=== PATIENT | male | born 1985 | race Caucasian/White ===

== ENCOUNTER 2018-07-19 08:47 | Emergency (ER) | payer OTHER ==
[2018-07-19 09:17] VITALS: BP 113/77
--- NOTE | 2018-07-19 10:40 | UC ---
Abdominal Pain Male HPI - HPI Summary HPI Summary: 1 WEEK AGO PATIENT DEVELOPED NAUSEA/VOMITING AND LOW-GRADE FEVER. NO DIARRHEA. LASTED FOR 2-3 DAYS THEN RESOLVED. PATIENT HAS HAD PERSISTENT LINGERING SHARP EPIGASTRIC ABDOMINAL PAIN SINCE THEN. NO URINARY SYMPTOMS. NO ASSOCIATION WITH FOOD HOWEVER IT DOES GET WORSE WHEN HE LAYS DOWN. HE HAS HAD REFLUX ON OCCASION IN THE PAST WHICH USUALLY RESPONDS WELL TO TUMS. PATIENT STATES THIS FEELS A LITTLE WORSE AND HE DID NOT TRY TUMS. - History of Current Complaint Chief Complaint: UCGI Stated Complaint: NAUSEA/ABD PAIN Time Seen by Provider: 07/19/18 10:02 Hx Obtained From: Patient Onset/Duration: Gradual Onset, Lasting Days, Still Present Severity Initially: Moderate Severity Currently: Mild Pain Intensity: 5 Pain Scale Used: 0-10 Numeric Location: Epigastric Radiates: No Character: Sharp Aggravating Factor(s): Nothing Alleviating Factor(s): Nothing Associated Signs And Symptoms: Positive: Nausea, Vomiting. Negative: Fever, Chest Pain, Back Pain, Urinary Symptoms - Allergies/Home Medications Allergies/Adverse Reactions: Allergies Allergy/AdvReac Type Severity Reaction Status Date / Time No Known Allergies Allergy Verified 07/19/18 09:11 Home Medications: Home Medications Ibuprofen TAB* [Motrin TAB* 400 MG] 400 mg PO BID PRN 07/19/18 [History Confirmed 07/19/18] PMH/Surg Hx/FS Hx/Imm Hx Previously Healthy: Yes - Surgical History Surgical History: Yes Surgery Procedure, Year, and Place: vasectomy - Family History Known Family History: Positive: Non-Contributory - Social History Alcohol Use: Rare Substance Use Type: Excessive Caffeine Substance Use Comment - Amount & Last Used: 3 cups daily Smoking Status (MU): Never Smoked Tobacco Review of Systems All Other Systems Reviewed And Are Negative: Yes Constitutional: Positive: Negative Skin: Positive: Negative Respiratory: Positive: Negative Cardiovascular: Positive: Negative Gastrointestinal: Positive: Abdominal Pain, Vomiting, Nausea. Negative: Diarrhea Genitourinary: Positive: Negative Physical Exam Triage Information Reviewed: Yes Appearance: Well-Appearing, No Pain Distress, Well-Nourished Vital Signs: Initial Vital Signs Temp 99.1 F 07/19/18 09:11 Pulse 73 07/19/18 09:11 Resp 18 07/19/18 09:11 BP 113/77 07/19/18 09:11 Pulse Ox 100 07/19/18 09:11 Vital Signs Reviewed: Yes Eyes: Positive: Conjunctiva Clear ENT: Positive: Hearing grossly normal, Pharynx normal, TMs normal Neck: Positive: Supple, Nontender, No Lymphadenopathy Respiratory Exam: Normal Cardiovascular Exam: Normal Abdomen Description: Positive: Nontender, Soft. Negative: CVA Tenderness (R), CVA Tenderness (L), Distended, Guarding Bowel Sounds: Positive: Present Musculoskeletal: Positive: No Edema Neurological: Positive: Alert Psychological: Positive: Age Appropriate Behavior Skin: Negative: Rashes Abd Pain Male Course/Dx - Course Course Of Treatment: PATIENT PRESENTATION IN LINE WITH GASTRITIS. WOULD ALSO CONSIDER ULCER VERSUS H PYLORI VERSUS REFLUX. PATIENT HAS HAD REFLUX IN THE PAST THAT USUALLY RESPONDS TO TUMS. HE DID NOT TAKE TUMS THIS TIME. HAVE ADVISED BLAND DIET. TRY PPI. FOLLOW-UP WITH GI. - Differential Dx/Clinical Impression Provider Diagnosis: Gastritis Discharge - Sign-Out/Discharge Documenting (check all that apply): Patient Departure All imaging exams completed and their final reports reviewed: No Studies - Discharge Plan Condition: Stable Disposition: HOME Prescriptions: Omeprazole 40 mg PO DAILY #30 capsule. Patient Education Materials: Gastritis (ED) Referrals: Suresh Coker DO [Primary Care Provider] - If Needed Additional Instructions: TAKE THE REFLUX MEDICINE IN THE MORNING (IDEALLY AT LEAST 30 MINUTES BEFORE YOU EAT). EAT SLOWLY. STAY UPRIGHT AT LEAST 30 MINUTES AFTER EATING. EAT SMALLER, MORE FREQUENT MEALS OPPOSED TO LARGE INFREQUENT MEALS. AVOID POSSIBLE TRIGGER FOODS - GREASY, SPICY, ACIDIC FOODS. CAFFEINE, ALCOHOL. FOLLOW-UP WITH GI FOR FURTHER EVALUATION OF YOUR SYMPTOMS. CONSIDER GASTRITIS VS REFLUX VS H.PYLORI VS ULCER. GO TO THE ER WITHOUT FAIL IF YOU DEVELOP WORSENING PAIN, NAUSEA/VOMITING, BLOOD IN THE VOMIT OR STOOL, FEVER OR ANY OTHER CONCERNING SYMPTOMS. - Billing Disposition and Condition Condition: STABLE Disposition: Home
== END 2018-07-19 10:30 | disposition home or self-care (01) ==
LOC: UCCORT 08:47
DX: K29.70 Gastritis, unspecified, without bleeding (principal)
CPT/HCPCS: 99202; G0463